=== PATIENT | male | born 1990 | race Caucasian/White ===

== ENCOUNTER → 2020-02-09 16:19 | Outpatient (BNVA) | payer MEDICAID, SELFPAY | PROVIDERS: PCP Family Medicine; Visit Provider Emergency Medicine | DX: S97.82XA Crushing injury of left foot, initial encounter (principal); X58.XXXA Exposure to other specified factors, initial encounter | CPT/HCPCS: 73630 ==

== ENCOUNTER → 2020-02-20 18:36 | Outpatient (BNVA) | payer MEDICAID, SELFPAY | PROVIDERS: PCP Family Medicine; Visit Provider Emergency Medicine | DX: G62.9 Polyneuropathy, unspecified (principal) | CPT/HCPCS: 80048; 85025 ==

== ENCOUNTER → 2020-04-04 11:25 | Outpatient (BNVA) | payer MEDICAID, SELFPAY | PROVIDERS: PCP Emergency Medicine; Visit Provider Nurse Practitioner | DX: G62.9 Polyneuropathy, unspecified (principal); F17.220 Nicotine dependence, chewing tobacco, uncomplicated | CPT/HCPCS: 99203; 99999 ==

== ENCOUNTER 2020-04-04 12:47 | Outpatient (CLI) | payer MEDICAID, SELFPAY ==
[2020-04-04 13:19] LABS: Basophils % 0.6 %; Eosinophils # 0.5 10^3/uL (0.0-0.8); Eosinophils % 7.5 %; Hematocrit 43.6 % (42.0-52.0); Hemoglobin 14.3 g/dL (11.7-16.6); Lymphocytes # 3.1 10^3/uL (0.8-4.8); Lymphocytes % 43.3 %; Mean Corpuscular HGB Conc 32.8 g/dL (30.0-36.0); Mean Corpuscular Hemoglobin 28.1 pg (28.0-34.0); Mean Corpuscular Volume 85.7 fL (80-94); Mean Platelet Volume 10.1 fL (7.4-10.4); Monocytes # 0.5 10^3/uL (0.2-0.9); Monocytes % 6.5 %; Nucleated Red Blood Cells % 0 %; Platelet Count 234 10^3/cmm (130-400); Red Blood Count 5.09 10^6/uL (4.1-5.3); Red Cell Distribution Width 12.3 % (12.1-15.1); White Blood Count 7.2 10^3/uL (4.0-10.0)
[2020-04-04 14:01] LABS: Alanine Aminotransferase 20 U/L (0-41); Alkaline Phosphatase 73 IU/L (40-130); Anion Gap 14.5 (5-19); Aspartate Amino Transferase 18 U/L (0-40); Blood Urea Nitrogen 11 mg/dL (6-20); Calcium 9.7 mg/dL (8.5-10.5); Carbon Dioxide 29 mmol/L (22-29); Chloride 101 mmol/L (98-107); Globulin 2.7 g/dL (1.3-4.6); Glomerular Filtration Rate 114.3 mL/min (90-130); Glucose 108 mg/dL (65-115); Osmolality Calculated 287 mOsm/kg (285-295); Potassium 4.5 mmol/L (3.5-5.1); Sodium 140 mmol/L (136-145); Thyroid Stimulating Hormone 1.92 uIU/mL (0.27-4.20); Total Bilirubin 0.3 mg/dL (0.15-1.2); Total Protein 7.7 g/dL (6.6-8.7)
[2020-04-04 14:49] LABS: Vitamin B12 594 pg/mL (232-1245)
[2020-04-04 14:59] LABS: Erythrocyte Sedimentation Rate 7 mm/hr (0-10)
[2020-04-05 16:46] LABS: Anti-Nuclear Antibody Screen NEGATIVE (NEGATIVE)
== END 2020-04-04 12:48 | disposition home or self-care (01) ==
LOC: LAB 12:48
PROVIDERS: Visit Provider Nurse Practitioner
DX: G62.9 Polyneuropathy, unspecified (principal)
CPT/HCPCS: 36415; 80053; 82607; 84443; 85025; 85651; 86038; 86431

== ENCOUNTER → 2020-12-23 13:43 | Outpatient (BNVA) | payer BC, MEDICAID, SELFPAY | PROVIDERS: Visit Provider Nurse Practitioner | DX: M25.40 Effusion, unspecified joint (principal); G56.03 Carpal tunnel syndrome, bilateral upper limbs; F17.210 Nicotine dependence, cigarettes, uncomplicated | CPT/HCPCS: 99213 ==

== ENCOUNTER 2020-12-23 15:05 | Outpatient (CLI) | payer BC, MEDICAID, SELFPAY ==
[2020-12-23 16:01] LABS: C Reactive Protein 2.2 mg/L (0.0-4.9)
[2020-12-23 17:16] LABS: Erythrocyte Sedimentation Rate 12 mm/hr (0-10)
[2020-12-24 14:43] LABS: Anti-Nuclear Antibody Screen NEGATIVE (NEGATIVE)
== END 2020-12-23 15:06 | disposition home or self-care (01) ==
LOC: LAB 15:12
PROVIDERS: Visit Provider Nurse Practitioner
DX: M25.40 Effusion, unspecified joint (principal)
CPT/HCPCS: 36415; 85651; 86038; 86140; 86431

== ENCOUNTER → 2021-01-06 14:04 | Outpatient (BNVA) | payer BC, MEDICAID, SELFPAY | PROVIDERS: PCP Nurse Practitioner; Visit Provider Specialist | DX: G56.03 Carpal tunnel syndrome, bilateral upper limbs (principal) | CPT/HCPCS: 73110 ==

== ENCOUNTER → 2021-01-27 16:04 | Outpatient (BNVA) | payer BC, MEDICAID, SELFPAY | PROVIDERS: PCP Nurse Practitioner; Visit Provider Specialist | DX: Z01.812 Encounter for preprocedural laboratory examination (principal); Z20.822 Contact with and (suspected) exposure to COVID-19 | CPT/HCPCS: 87635 ==

== ENCOUNTER 2021-01-31 05:51 | Day surgery (SDC) | payer BC, MEDICAID, SELFPAY ==
[2021-01-31] VITALS (7 sets, daily range): BP systolic 98–124; BP diastolic 57–81; PULSE 54–86; RESP 16–18; TEMP 36.2–36.6; O2SAT 94–97
[2021-01-31] MEDS: acetaminophen 1,000 MG/100 ML PIGGYBACK 400 MG IV (06:25)
[2021-01-31] MEDS: CELEcoxib 200 mg Capsule 400 MG PO (06:25)
[2021-01-31] MEDS: sodium chloride 0.9% 1,000 ML 30 ML IV (06:25)
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
--- NOTE | 2021-01-31 06:58 | W.PM.OPSUD ---
Surgery/Procedure H&P Update DATE OF PROCEDURE: January 31, 2021 DATE H&P PERFORMED: 01/06/21 H&P UPDATE INFORMATION: I have reviewed H&P completed within last 30 days, I have examined patient prior to procedure, No changes to prior documentation and H&P is in [facility] EMR on date indicated PREOP DIAGNOSIS: Right carpal tunnel PLANNED PROCEDURE: Operation Date: 01/31/21 07:00 Proposed Procedures p Carpal Tunnel Release Right 63072 G56.03(Right) - Joy Butler MD Related Problem List Diagnoses (1) Carpal tunnel syndrome on right:
--- NOTE | 2021-01-31 08:11 | P.PCN_ITS ---
PACU note PACU note: VSS, Good respiratory effort, report to COMPLETION ENGINEER Post-Anesthesia Exam: awake
--- NOTE | 2021-01-31 08:11 | PM.PACU ---
PACU note PACU note: VSS, Good respiratory effort, report to HOCKEY SCOUT Post-Anesthesia Exam: awake
--- NOTE | 2021-01-31 08:15 | PM.OP ---
Operative Report Date of procedure: January 31, 2021 Pre-op Diagnosis: Right carpal tunnel Post-op diagnosis: same Post-op Findings: Compression across the median nerve Procedure Done: Right carpal tunnel release Specimens removed/disposition: None Pathology: none sent Surgeon: Joy Butler Pick Up Truck Driver: None Anesthesia: MAC (With Thelma block) Estimated blood loss (mL): 5 Tourniquet time (min): 36 Tourniquet time: 250 mmHg IV fluids (mL): 700 Urine output (mL): 0 Urine output: No Metzger Complications: None Findings: Tight transverse carpal ligament with thickening Condition: stable Disposition: PACU (Then to same-day for discharge to home) Brief History: 30-year-old gentleman had complaints consistent with right carpal tunnel syndrome. Electrodiagnostic studies also confirmed this. The patient was scheduled for the above procedure. Risks and complications were discussed and the patient understood. Procedure: The patient was brought to the operating theater. The patient had a Thelma block with MAC. The tourniquet was elevated to 250 mmHg for a total tourniquet time of 36 minutes. The patient was also given Ancef 2 g preoperatively. The arm was then prepped and draped with DuraPrep in usual fashion with the arm draped free. A surgical pause was performed. At the time, the surgical pause, we confirmed the site and side of surgery. We also confirmed the patient's identity, appropriate and timely administration of preoperative antibiotics and preoperative surgical markings. An incision was then made along the thenar crease. The incision crossed the wrist joint in a curvilinear fashion. Dissection continued through skin and soft tissues using a scalpel. The palmaris longus was identified along with the transverse carpal ligament. Each of these was released carefully to avoid injury to the median nerve. We were able to dissect gently into the carpal canal which was noted to be quite tight with significant compression across the median nerve. The nerve was visualized. The canal was subsequently palpated to assure there was no bony encroachment upon the canal. There was a quite thickened fibrous tissue within the canal, and this was opened longitudinally as well. The canal was then palpated distally and proximally to assure that my small finger was passed easily without impingement. Finding this to be so, attention was directed to closure. The wound was irrigated with ropivacaine plain. It was then closed with 3-0 nylon in an interrupted mattress fashion. Sterile dressing was then placed consisting of Xeroform gauze, fluffed fluffs, sterile soft roll, a volar splint, and an Fred wrap. The tourniquet was released after 36 minutes. There were no complications. There were no specimens. The procedure was well tolerated. Plan is the patient will be discharged home. Associated Problem List Diagnoses (1) Carpal tunnel syndrome on right:
--- NOTE | 2021-01-31 10:21 | ANE.PACU2 ---
Inpatient post-anesthesia follow up: Airway intact: Yes Vital signs: Temperature 98 F Pulse Rate 54 Respiratory Rate 17 Blood Pressure 98/57 Pulse Oximetry 95 Oxygen Delivery Me thod Room Air Oxygen Flow Rate Fraction of Inspir ed Oxygen Hydration adequate: Yes Nausea and vomiting: No Pain level: 1 Mental status: Baseline
== END 2021-01-31 08:53 | disposition home or self-care (01) ==
PROVIDERS: PCP Nurse Practitioner; Visit Provider Specialist
PROC: (CPT 64721; principal; 2021-01-31 07:00)
DX: G56.01 Carpal tunnel syndrome, right upper limb (principal); J44.9 Chronic obstructive pulmonary disease, unspecified; G89.29 Other chronic pain; Z79.891 Long term (current) use of opiate analgesic; F17.220 Nicotine dependence, chewing tobacco, uncomplicated
CPT/HCPCS: 64721; 96365; J0690; J2250; J2704; J3010; J3490; J7030

== ENCOUNTER → 2021-02-11 10:33 | Outpatient (BNVA) | payer BC, MEDICAID, SELFPAY | PROVIDERS: PCP Nurse Practitioner; Visit Provider Specialist | DX: G56.02 Carpal tunnel syndrome, left upper limb (principal) | CPT/HCPCS: 87635 ==

== ENCOUNTER 2021-02-14 06:01 | Day surgery (SDC) | payer BC, MEDICAID, SELFPAY ==
[2021-02-10 08:58] VITALS: BMI 28.1
[2021-02-14 06:10] VITALS: BP 120/72; PULSE 67; RESP 18; TEMP 36.3; O2SAT 98
[2021-02-14] MEDS: CELEcoxib 200 mg Capsule 400 MG PO (06:19)
[2021-02-14] MEDS: acetaminophen 1,000 MG/100 ML PIGGYBACK 400 MG IV (06:30)
[2021-02-14] MEDS: sodium chloride 0.9% 1,000 ML 30 ML IV (06:45)
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
--- NOTE | 2021-02-14 07:02 | P.HPUD_ITS ---
Surgery/Procedure H&P Update DATE OF PROCEDURE: February 14, 2021 DATE H&P PERFORMED: 02/10/21 H&P UPDATE INFORMATION: I have reviewed H&P completed within last 30 days, I have examined patient prior to procedure, No changes to prior documentation and H&P is in [facility] EMR on date indicated PREOP DIAGNOSIS: Left Carpal Tunnel Syndrome PLANNED PROCEDURE: Operation Date: 02/14/21 07:00 Proposed Procedures p left Carpal Tunnel Release [id number] g56.03(Left) - Joy Butler MD Related Problem List Diagnoses (1) Carpal tunnel syndrome, left:
[2021-02-14 07:51] VITALS: BP 124/67; PULSE 66; RESP 12; TEMP 36.2; O2SAT 95
[2021-02-14 07:55] VITALS: BP 121/63; PULSE 63; RESP 16; TEMP 36.6; O2SAT 94
--- NOTE | 2021-02-14 07:56 | P.PCN_ITS ---
PACU note PACU note: VSS, Good respiratory effort, report to ANIMAL RIDE ATTENDANT Post-Anesthesia Exam: awake
--- NOTE | 2021-02-14 07:56 | PM.PACU ---
PACU note PACU note: VSS, Good respiratory effort, report to SUSTAINABILITY COMMUNICATOR Post-Anesthesia Exam: awake
--- NOTE | 2021-02-14 08:02 | PM.OP ---
Operative Report Date of procedure: February 14, 2021 Pre-op Diagnosis: Left Carpal Tunnel Syndrome Post-op diagnosis: same Post-op Findings: Tight canal with deformity to the median nerve and thickened fibrous tissue Procedure Done: Left carpal tunnel release Specimens removed/disposition: None Pathology: none sent Surgeon: Joy Butler Dinking Machine Operator: None Anesthesia: MAC (With Schlusser block) Estimated blood loss (mL): 5 Tourniquet time (min): 30 Tourniquet time: At 250 mmHg IV fluids (mL): 400 Complications: None Findings: Significant compression across the median nerve through the carpal canal, and thickened transverse carpal ligament Condition: stable Disposition: PACU (Then to same-day surgery for discharge to home) Brief History: This 30-year-old gentleman had complaints consistent with left carpal tunnel syndrome. Previously, he underwent right carpal tunnel release. He has done well from this. He now wishes to proceed with his left carpal tunnel release electrodiagnostic studies also confirmed this. The patient was scheduled for the above procedure. Risks and complications were discussed and the patient understood. Procedure: The patient was brought to the operating theater. The patient had a Thelma block with MAC. The tourniquet was elevated to 250 mmHg for a total tourniquet time of 30 minutes. The patient was also given Ancef 2 g preoperatively. The arm was then prepped and draped with DuraPrep in usual fashion with the arm draped free. A surgical pause was performed. At the time, the surgical pause, we confirmed the site and side of surgery. We also confirmed the patient's identity, appropriate and timely administration of preoperative antibiotics and preoperative surgical markings. An incision was then made along the thenar crease. The incision crossed the wrist joint in a curvilinear fashion. Dissection continued through skin and soft tissues using a scalpel. The palmaris longus was identified along with the transverse carpal ligament. Each of these was released carefully to avoid injury to the median nerve. We were able to dissect gently into the carpal canal which was noted to be quite tight with significant compression across the median nerve. The nerve was visualized. The canal was subsequently palpated to assure there was no bony encroachment upon the canal. There was a quite thickened fibrous tissue within the canal, and this was opened longitudinally as well. The canal was then palpated distally and proximally to assure that my small finger was passed easily without impingement. Finding this to be so, attention was directed to closure. The wound was irrigated with ropivacaine plain. It was then closed with 3-0 nylon in an interrupted mattress fashion. Sterile dressing was then placed consisting of Xeroform gauze, fluffed fluffs, sterile soft roll, a volar splint, and an Fred wrap. The tourniquet was released after 30 minutes. There were no complications. There were no specimens. The procedure was well tolerated. Plan is the patient will be discharged home. Associated Problem List Diagnoses (1) Carpal tunnel syndrome, left:
[2021-02-14 08:03] VITALS: BP 111/66; PULSE 58; RESP 18; TEMP 36.2; O2SAT 95
[2021-02-14 08:28] VITALS: BP 112/74; PULSE 63; RESP 18; TEMP 36.2; O2SAT 95
--- NOTE | 2021-02-14 18:00 | ANE.PACU2 ---
Inpatient post-anesthesia follow up: Airway intact: Yes Vital signs: Temperature 97.2 F Pulse Rate 63 Respiratory Rate 18 Blood Pressure 112/74 Pulse Oximetry 95 Oxygen Delivery Me thod Room Air Oxygen Flow Rate Fraction of Inspir ed Oxygen Hydration adequate: Yes Nausea and vomiting: No Pain level: 3 Mental status: Baseline
== END 2021-02-14 08:31 | disposition home or self-care (01) ==
PROVIDERS: PCP Nurse Practitioner; Visit Provider Specialist
PROC: (CPT 64721; principal; 2021-02-14 07:00)
DX: G56.02 Carpal tunnel syndrome, left upper limb (principal); F17.220 Nicotine dependence, chewing tobacco, uncomplicated
CPT/HCPCS: 64721; 96365; J0690; J2250; J2704; J3010; J3490; J7030

== ENCOUNTER → 2021-06-01 15:35 | Outpatient (BNVA) | payer BC, MEDICAID, SELFPAY | PROVIDERS: PCP Nurse Practitioner; Visit Provider Emergency Medicine | DX: Z20.822 Contact with and (suspected) exposure to COVID-19 (principal) | CPT/HCPCS: 87635 ==

== ENCOUNTER → 2023-03-26 15:06 | Outpatient (BNVA) | payer BC, SELFPAY | PROVIDERS: PCP Nurse Practitioner; Visit Provider Nurse Practitioner Family | DX: J02.9 Acute pharyngitis, unspecified (principal) | CPT/HCPCS: 87071; 87880 ==

== ENCOUNTER 2024-03-15 12:14 | Emergency (ER) | payer BC, MEDICAID, SELFPAY ==
[2024-03-15 12:32] VITALS: BP 156/110; PULSE 111; RESP 17; TEMP 36.8; O2SAT 100; BMI 24.9
--- NOTE | 2024-03-15 15:18 | CTR_ITS ---
PROCEDURE INFORMATION: Exam: CT Maxillofacial With Contrast; Mandible Exam date and time: 03/15/2024 3:37 PM Age: 33 years old Clinical indication: Mass, lump, or swelling; Other: Left mandible; Prior surgery; Surgery date: 3-7 days post-operative; Additional info: Post-operative pain/bleeding TECHNIQUE: Imaging protocol: Computed tomography maxillofacial with intravenous contrast. Exam focused on the mandible. Radiation optimization: All CT scans at this facility use at least one of these dose optimization techniques: automated exposure control; mA and/or kV adjustment per patient size (includes targeted exams where dose is matched to clinical indication); or iterative reconstruction. Contrast material: OMNI 350; Contrast volume: 100 ml; Contrast route: INTRAVENOUS (IV); COMPARISON: CT neck w con* [id number] 03/15/2024 3:37 PM RADIATION DOSE METRICS: Total DLP (mGy-cm): 657.5 FINDINGS: Bones: Screw plates across the mandibular symphysis and left mandibular ramus. Bone graft material posterior to left-sided mandibular screw plate. Separation through left-sided mandibular fracture in the region the mandibular angle. There appears to have been some separation of anterior portion of screw plate from mandibular body anterior to the fracture margin. The inferior portion of the mandibular ramus component is slightly displaced medially along the margin of the mucosal surface within the oral cavity. There is surrounding air that extends laterally into the soft tissues surrounding the fracture and superficially. Diffuse cellulitis in this region. There adjacent abnormal lymph nodes in left submandibular space with posterior hypodensity. No definite abscess. Soft tissue swelling is also noted within the left production superintendent hydro space. Fracture across the mandibular symphysis appears intact but there is also in this region the possibility of small amount of separation of screw plate from the [place] bone. Paranasal sinuses: Normal. No air-fluid levels. Salivary glands: Normal. Glands are normal in size. Lymph nodes: See Bones/joints finding. Soft tissues: See Bones/joints finding. CT/CT facial bones w con [id number] IMPRESSION: 1. Screw plates on anterior and left side of the mandible. 2. Possible separation at fracture centered at the left mandibular angle with separation of fracture fragments. The mandibular ramus fracture inferiorly appears slightly displaced medially adjacent to the mucosal surface within the oral cavity. Air appears to communicate from this location superficially surrounding the mandibular angle and extending into the subcutaneous region. 3. Diffuse cellulitis surrounding the fracture margins with necrotic lymphadenopathy in the submandibular space but no definite abscess. No definite airway compromise. 4. Possible small amount of separation parasymphyseal screw plate.
--- NOTE | 2024-03-15 15:20 | CTR_ITS ---
PROCEDURE INFORMATION: Exam: CT Neck With Contrast Exam date and time: 03/15/2024 3:37 PM Age: 33 years old Clinical indication: Mass, lump, or swelling in neck; Prior surgery; Surgery date: 1-6 months; Surgery type: Left mandible from injury; Additional info: W/ soft tissue TECHNIQUE: Imaging protocol: Computed tomography of the neck with contrast. Radiation optimization: All CT scans at this facility use at least one of these dose optimization techniques: automated exposure control; mA and/or kV adjustment per patient size (includes targeted exams where dose is matched to clinical indication); or iterative reconstruction. Contrast material: OMNI 350; Contrast volume: 100 ml; Contrast route: INTRAVENOUS (IV); COMPARISON: CT facial bones w con [id number] 03/15/2024 3:37 PM RADIATION DOSE METRICS: Total DLP (mGy-cm): 824 FINDINGS: Pharynx: Unremarkable. No significant tonsillar enlargement. Larynx: Unremarkable. Epiglottis is normal. Prevertebral and retropharyngeal spaces: Unremarkable. Salivary glands: Normal. Glands are normal in size. Thyroid: Normal. No enlarged or calcified nodules. Lymph nodes: See Bones/joints finding. Trachea: Visualized trachea is unremarkable. Lungs: Unremarkable as visualized. Bones/joints: Screw plates across the mandibular symphysis and left mandibular ramus. Bone graft material posterior to left-sided mandibular screw plate. Separation through left-sided mandibular fracture in the region the mandibular angle. There appears to have been some separation of anterior portion of screw plate from mandibular body anterior to the fracture margin. The inferior portion of the mandibular ramus component is slightly displaced medially along the margin of the mucosal surface within the oral cavity. There is surrounding air that extends laterally into the soft tissues surrounding the fracture and superficially. Diffuse cellulitis in this region. There adjacent abnormal lymph nodes in left submandibular space with posterior hypodensity. No definite abscess. Soft tissue swelling is also noted within the left sailor space. Fracture across the mandibular symphysis appears intact but there is also in this region the possibility of small amount of separation of screw plate from the [place] bone. Soft tissues: See Bones/joints finding. CT/CT neck w con* [id number] IMPRESSION: 1. Screw plates on anterior and left side of the mandible. 2. Possible separation at fracture centered at the left mandibular angle with separation of fracture fragments. The mandibular ramus fracture inferiorly appears slightly displaced medially adjacent to the mucosal surface within the oral cavity. Air appears to communicate from this location superficially surrounding the mandibular angle and extending into the subcutaneous region. 3. Diffuse cellulitis surrounding the fracture margins with necrotic lymphadenopathy in the submandibular space but no definite abscess. No definite airway compromise. 4. Possible small amount of separation parasymphyseal screw plate.
--- NOTE | 2024-03-15 15:30 | PC.PHAR ---
pt states he takes care of his own medications-pt states he stopped taking his buprenorphine-naloxone 8-2mg film tid a month ago states no one would give him pain medication because of it ext shows last filled 02/03/24 28d/s-ext shows a norco 7.5/325/15ml filled 180ml 5d/s filled 02/25/24 pt states didnt black pickler called adam [place] states the pt did pick it up on 02/25/24-pt also states he is out of his oxycodone 5mg filled 03/10/24 4d/s pt states he takes lyrica 150mg tid prn rx filled 01/31/24 150mg tid rx has refills-pt states he takes trazodone 150mg hs prn rx filled 12/2023 150mg hs rx has refills-pt states he no longer takes clonazepam 1mg bid ext shows last filled 01/26/24 no refills-
[2024-03-15] MEDS: iohexol 350 mg/mL 500 mL Btl (per mL) IV (15:42)
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
[2024-03-15] MEDS: dexamethasone 10 mg/mL INJ 8 MG IVP (15:55)
[2024-03-15] MEDS: ketorolac 60 mg/2 mL INJ 30 MG IVP (15:55)
[2024-03-15] MEDS: morphine 4 mg/mL SDV 1 mL IVP (18:20)
== END 2024-03-15 18:36 | disposition home or self-care (01) ==
PROVIDERS: Emergency Provider Physician Assistant
DX: M96.89 Other intraoperative and postprocedural complications and disorders of the musculoskeletal system (principal); Z87.891 Personal history of nicotine dependence
CPT/HCPCS: 70487; 70491; 96372; 96374; 96375; 99285; J1100; J1885; J2270; Q9967